=== PATIENT | male | born 1965 | race African-American/Black ===

== ENCOUNTER 2021-06-19 15:20 | Inpatient (IN) | payer OTHER ==
[2021-06-19] MEDS ORDERED: LOPERAMIDE HCL 2 MG CAPSULE PO PRN (23:35)
[2021-06-19] MEDS ORDERED: guaiFENesin 200 MG/10 ML 10 ML UNIT-DOSE CUPS PO PRN (23:35)
[2021-06-19] MEDS ORDERED: MAG HYDROX/AL HYDROX/SIMETH 30 ML UNIT-DOSE CUP PO PRN (23:35)
[2021-06-19] MEDS ORDERED: MAGNESIUM CITRATE 300 ML BOTTLE PO PRN (23:35)
[2021-06-19] MEDS ORDERED: MAGNESIUM HYDROX 2400MG/30ML ORAL SUSPENSION 30 ML CUP PO PRN (23:35)
[2021-06-19] MEDS ORDERED: P-EPHED 60MG/TRIPROLIDI 2.5MG TABLET PO PRN (23:35)
[2021-06-19 23:52] VITALS: BMI 26.7
[2021-06-20] MEDS ORDERED: TUBERCULIN PPD 5 TU/0.1ML VIAL ID ONE (02:19)
[2021-06-20] MEDS: MELATONIN 5 MG TABLETS PO SCH ×2 (02:29→21:33)
[2021-06-20] MEDS: hydrOXYzine PAMOATE 25 MG CAPSULE (FP) PO SCH ×5 (07:27→21:34)
[2021-06-20] MEDS: HYDROCHLOROTHIAZIDE 25 MG TABLET (FP) PO SCH (10:29)
[2021-06-20] MEDS: LISINOPRIL 10 MG TABLET PO SCH (10:29)
[2021-06-20] MEDS: ASPIRIN COATED 81 MG TABLET.EC PO SCH (10:29)
[2021-06-20] MEDS: PRENATAL VITAMINS W/ FOLIC ACID TABLET (FP) PO SCH (10:30)
[2021-06-20] MEDS: NICOTINE 7 MG/24 HOURS TOPICAL PATCH TD SCH (10:30)
[2021-06-20 13:13] LABS: EPI CELLS 5 /uL (0-25.1); HYALINE CASTS 0 /uL (0-3.1); PH,URINE 5.5 (5.0-8.0); URINE APPEARANCE CLEAR; URINE BACTERIA 44 /uL (0-1359); URINE BILIRUBIN NEGATIVE (NEGATIVE); URINE COLOR YELLOW; URINE GLUCOSE (UA) NEGATIVE (NEGATIVE); URINE KETONE NEGATIVE (NEGATIVE); URINE LEUK ESTERASE NEGATIVE (NEGATIVE); URINE NITRITE NEGATIVE (NEGATIVE); URINE PROTEIN NEGATIVE (NEGATIVE); URINE RBC 13 /uL (0-23.9); URINE WBC 8 /uL (0-25.8)
[2021-06-20] MEDS: IBUPROFEN 400 MG TABLET (FP) PO PRN (17:29)
[2021-06-20] MEDS: ATORVASTATIN CA 40 MG TABLET (FP) PO SCH (21:33)
[2021-06-20] MEDS: CEFPODOXIME PROXETIL 200 MG TABLET [NF] PO SCH (21:33)
[2021-06-20] MEDS: THIAMINE HCL 100 MG TABLET (FP) PO SCH (21:33)
[2021-06-20] MEDS: ACETAMINOPHEN 325 MG TABLET (FP) PO PRN (21:34)
[2021-06-21] MEDS: hydrOXYzine PAMOATE 25 MG CAPSULE (FP) PO SCH ×5 (06:14→21:17)
[2021-06-21] MEDS: CEFPODOXIME PROXETIL 200 MG TABLET [NF] PO SCH ×2 (07:03→17:19)
[2021-06-21] MEDS: ASPIRIN COATED 81 MG TABLET.EC PO SCH (11:37)
[2021-06-21] MEDS: ATORVASTATIN CA 40 MG TABLET (FP) PO SCH (11:38)
[2021-06-21] MEDS: HYDROCHLOROTHIAZIDE 25 MG TABLET (FP) PO SCH (11:38)
[2021-06-21] MEDS: LISINOPRIL 10 MG TABLET PO SCH (11:38)
[2021-06-21] MEDS: NICOTINE 7 MG/24 HOURS TOPICAL PATCH TD SCH (11:38)
[2021-06-21] MEDS: PRENATAL VITAMINS W/ FOLIC ACID TABLET (FP) PO SCH (11:38)
[2021-06-21] MEDS: METHOCARBAMOL 500 MG TABLET PO PRN (17:20)
[2021-06-21] MEDS: THIAMINE HCL 100 MG TABLET (FP) PO SCH (21:17)
[2021-06-21] MEDS: MELATONIN 5 MG TABLETS PO SCH (21:17)
[2021-06-22] MEDS: hydrOXYzine PAMOATE 25 MG CAPSULE (FP) PO SCH ×5 (06:23→21:35)
[2021-06-22] MEDS: ACETAMINOPHEN 325 MG TABLET (FP) PO PRN ×2 (06:24→10:42)
[2021-06-22] MEDS: CEFPODOXIME PROXETIL 200 MG TABLET [NF] PO SCH ×2 (07:15→18:02)
[2021-06-22] MEDS ORDERED: ATORVASTATIN CA 20 MG TABLET (FP) ONE (08:45)
[2021-06-22] MEDS: LISINOPRIL 10 MG TABLET PO SCH (10:41)
[2021-06-22] MEDS: ASPIRIN COATED 81 MG TABLET.EC PO SCH (10:41)
[2021-06-22] MEDS: BUPRENORPHINE/NALOXONE 4 MG/1 MG FILM PACKET SL SCH ×2 (10:41→21:35)
[2021-06-22] MEDS: HYDROCHLOROTHIAZIDE 25 MG TABLET (FP) PO SCH (10:41)
[2021-06-22] MEDS: ATORVASTATIN CA 40 MG TABLET (FP) PO SCH (10:41)
[2021-06-22] MEDS: PRENATAL VITAMINS W/ FOLIC ACID TABLET (FP) PO SCH (10:41)
[2021-06-22] MEDS: NICOTINE 7 MG/24 HOURS TOPICAL PATCH TD SCH (10:42)
[2021-06-22] MEDS: METHOCARBAMOL 500 MG TABLET PO PRN (10:44)
[2021-06-22 17:12] LABS: HEMATOCRIT 37.7 % (35.4-49); HEMOGLOBIN 13.1 GM/dL (11.7-16.9); MCH 32.5 pg (25.7-33.7); MCHC 34.8 g/dl (32.0-35.9); MEAN CELL VOLUME 93.1 fl (80-96); MEAN PLT VOLUME 7.9 fl (7.5-11.1); PLATELET COUNT 610 10^3/uL (134-434); RBC 4.04 M/mm3 (4.00-5.60); RDW 13.5 % (11.9-15.9); WHITE BLOOD COUNT 6.7 K/mm3 (4.0-10.0)
[2021-06-22] MEDS ORDERED: PT OWN MED DRAWER 7, Y5N ONE (17:19)
[2021-06-22 17:22] LABS: ALBUMIN 2.3 g/dl (3.4-5.0)
[2021-06-22 17:24] LABS: BILIRUBIN,TOTAL 0.5 mg/dL (0.2-1); TOT PROT 7.5 g/dl (6.4-8.2)
[2021-06-22] MEDS: THIAMINE HCL 100 MG TABLET (FP) PO SCH (21:34)
[2021-06-22] MEDS: MELATONIN 5 MG TABLETS PO SCH (21:35)
[2021-06-23] MEDS: ACETAMINOPHEN 325 MG TABLET (FP) PO PRN (06:31)
[2021-06-23] MEDS: hydrOXYzine PAMOATE 25 MG CAPSULE (FP) PO SCH ×5 (06:31→21:26)
[2021-06-23] MEDS: CEFPODOXIME PROXETIL 200 MG TABLET [NF] PO SCH (07:47)
[2021-06-23] MEDS: PRENATAL VITAMINS W/ FOLIC ACID TABLET (FP) PO SCH (10:09)
[2021-06-23] MEDS: NICOTINE 7 MG/24 HOURS TOPICAL PATCH TD SCH (10:10)
[2021-06-23] MEDS: LISINOPRIL 10 MG TABLET PO SCH (10:10)
[2021-06-23] MEDS: ATORVASTATIN CA 40 MG TABLET (FP) PO SCH (10:10)
[2021-06-23] MEDS: BUPRENORPHINE/NALOXONE 4 MG/1 MG FILM PACKET SL SCH ×2 (10:10→21:27)
[2021-06-23] MEDS: METHOCARBAMOL 500 MG TABLET PO PRN (10:10)
[2021-06-23] MEDS: ASPIRIN COATED 81 MG TABLET.EC PO SCH (10:10)
[2021-06-23] MEDS: HYDROCHLOROTHIAZIDE 25 MG TABLET (FP) PO SCH (10:10)
[2021-06-23] MEDS: MELATONIN 5 MG TABLETS PO SCH (21:26)
[2021-06-23] MEDS: THIAMINE HCL 100 MG TABLET (FP) PO SCH (21:26)
[2021-06-24] MEDS: hydrOXYzine PAMOATE 25 MG CAPSULE (FP) PO SCH ×5 (06:32→21:14)
[2021-06-24] MEDS: PRENATAL VITAMINS W/ FOLIC ACID TABLET (FP) PO SCH (09:26)
[2021-06-24] MEDS: LISINOPRIL 10 MG TABLET PO SCH (09:27)
[2021-06-24] MEDS: BUPRENORPHINE/NALOXONE 8 MG/2 MG FILM PACKET SL SCH (09:27)
[2021-06-24] MEDS: METHOCARBAMOL 500 MG TABLET PO PRN (09:27)
[2021-06-24] MEDS: ATORVASTATIN CA 40 MG TABLET (FP) PO SCH (09:27)
[2021-06-24] MEDS: IBUPROFEN 400 MG TABLET (FP) PO PRN (09:28)
[2021-06-24] MEDS: NICOTINE 7 MG/24 HOURS TOPICAL PATCH TD SCH (09:28)
[2021-06-24] MEDS: HYDROCHLOROTHIAZIDE 25 MG TABLET (FP) PO SCH (09:28)
[2021-06-24] MEDS: ASPIRIN COATED 81 MG TABLET.EC PO SCH (09:28)
[2021-06-24] MEDS ORDERED: BUPRENORPHINE/NALOXONE 8 MG/2 MG FILM PACKET SL SCH (10:00)
[2021-06-24] MEDS: NICOTINE 10 MG CARTRIDGE (INHALER) IH PRN (18:13)
[2021-06-24] MEDS: BUPRENORPHINE/NALOXONE 4 MG/1 MG FILM PACKET SL SCH (21:12)
[2021-06-24] MEDS: MELATONIN 5 MG TABLETS PO SCH (21:13)
[2021-06-24] MEDS: THIAMINE HCL 100 MG TABLET (FP) PO SCH (21:13)
[2021-06-25] MEDS: ACETAMINOPHEN 325 MG TABLET (FP) PO PRN ×2 (06:19→14:32)
[2021-06-25] MEDS: hydrOXYzine PAMOATE 25 MG CAPSULE (FP) PO SCH ×5 (06:19→21:33)
[2021-06-25] MEDS: LISINOPRIL 10 MG TABLET PO SCH (09:58)
[2021-06-25] MEDS: ASPIRIN COATED 81 MG TABLET.EC PO SCH (09:58)
[2021-06-25] MEDS: ATORVASTATIN CA 40 MG TABLET (FP) PO SCH (09:59)
[2021-06-25] MEDS: HYDROCHLOROTHIAZIDE 25 MG TABLET (FP) PO SCH (09:59)
[2021-06-25] MEDS: BUPRENORPHINE/NALOXONE 8 MG/2 MG FILM PACKET SL SCH (10:00)
[2021-06-25] MEDS: NICOTINE 7 MG/24 HOURS TOPICAL PATCH TD SCH (10:00)
[2021-06-25] MEDS: PRENATAL VITAMINS W/ FOLIC ACID TABLET (FP) PO SCH (10:00)
[2021-06-25] MEDS: MELATONIN 5 MG TABLETS PO SCH (21:32)
[2021-06-25] MEDS: THIAMINE HCL 100 MG TABLET (FP) PO SCH (21:32)
[2021-06-25] MEDS: IBUPROFEN 400 MG TABLET (FP) PO PRN (21:33)
[2021-06-25] MEDS: BUPRENORPHINE/NALOXONE 4 MG/1 MG FILM PACKET SL SCH (21:34)
[2021-06-25] MEDS: NICOTINE 10 MG CARTRIDGE (INHALER) IH PRN (21:38)
[2021-06-26] MEDS: IBUPROFEN 400 MG TABLET (FP) PO PRN ×2 (06:35→21:01)
[2021-06-26] MEDS: hydrOXYzine PAMOATE 25 MG CAPSULE (FP) PO SCH ×5 (07:16→21:03)
[2021-06-26] MEDS: ATORVASTATIN CA 40 MG TABLET (FP) PO SCH (09:47)
[2021-06-26] MEDS: LISINOPRIL 10 MG TABLET PO SCH (09:47)
[2021-06-26] MEDS: HYDROCHLOROTHIAZIDE 25 MG TABLET (FP) PO SCH (09:47)
[2021-06-26] MEDS: NICOTINE 7 MG/24 HOURS TOPICAL PATCH TD SCH (09:47)
[2021-06-26] MEDS: BUPRENORPHINE/NALOXONE 8 MG/2 MG FILM PACKET SL SCH (09:47)
[2021-06-26] MEDS: PRENATAL VITAMINS W/ FOLIC ACID TABLET (FP) PO SCH (09:48)
[2021-06-26] MEDS: ASPIRIN COATED 81 MG TABLET.EC PO SCH (09:48)
[2021-06-26] MEDS: METHOCARBAMOL 500 MG TABLET PO PRN (09:50)
[2021-06-26] MEDS: ACETAMINOPHEN 325 MG TABLET (FP) PO PRN (09:50)
[2021-06-26] MEDS: NICOTINE 10 MG CARTRIDGE (INHALER) IH PRN (13:38)
[2021-06-26] MEDS: THIAMINE HCL 100 MG TABLET (FP) PO SCH (21:00)
[2021-06-26] MEDS: MELATONIN 5 MG TABLETS PO SCH (21:00)
[2021-06-26] MEDS: BUPRENORPHINE/NALOXONE 4 MG/1 MG FILM PACKET SL SCH (21:01)
[2021-06-27] MEDS: hydrOXYzine PAMOATE 25 MG CAPSULE (FP) PO SCH ×5 (06:34→21:40)
[2021-06-27] MEDS: ACETAMINOPHEN 325 MG TABLET (FP) PO PRN (06:34)
[2021-06-27] MEDS: NICOTINE 10 MG CARTRIDGE (INHALER) IH PRN ×2 (06:35→21:41)
[2021-06-27] MEDS: PRENATAL VITAMINS W/ FOLIC ACID TABLET (FP) PO SCH (10:05)
[2021-06-27] MEDS: ASPIRIN COATED 81 MG TABLET.EC PO SCH (10:05)
[2021-06-27] MEDS: HYDROCHLOROTHIAZIDE 25 MG TABLET (FP) PO SCH (10:05)
[2021-06-27] MEDS: BUPRENORPHINE/NALOXONE 8 MG/2 MG FILM PACKET SL SCH (10:05)
[2021-06-27] MEDS: LISINOPRIL 10 MG TABLET PO SCH (10:05)
[2021-06-27] MEDS: ATORVASTATIN CA 40 MG TABLET (FP) PO SCH (10:05)
[2021-06-27] MEDS: NICOTINE 7 MG/24 HOURS TOPICAL PATCH TD SCH (10:06)
[2021-06-27] MEDS: METHOCARBAMOL 500 MG TABLET PO PRN (14:54)
[2021-06-27] MEDS: BUPRENORPHINE/NALOXONE 4 MG/1 MG FILM PACKET SL SCH (21:40)
[2021-06-27] MEDS: MELATONIN 5 MG TABLETS PO SCH (21:40)
[2021-06-27] MEDS: THIAMINE HCL 100 MG TABLET (FP) PO SCH (21:40)
[2021-06-28] MEDS: IBUPROFEN 400 MG TABLET (FP) PO PRN (06:44)
[2021-06-28] MEDS: hydrOXYzine PAMOATE 25 MG CAPSULE (FP) PO SCH ×5 (06:44→21:11)
[2021-06-28] MEDS: LISINOPRIL 10 MG TABLET PO SCH (10:17)
[2021-06-28] MEDS: ASPIRIN COATED 81 MG TABLET.EC PO SCH (10:17)
[2021-06-28] MEDS: ATORVASTATIN CA 40 MG TABLET (FP) PO SCH (10:17)
[2021-06-28] MEDS: HYDROCHLOROTHIAZIDE 25 MG TABLET (FP) PO SCH (10:17)
[2021-06-28] MEDS: PRENATAL VITAMINS W/ FOLIC ACID TABLET (FP) PO SCH (10:17)
[2021-06-28] MEDS: BUPRENORPHINE/NALOXONE 8 MG/2 MG FILM PACKET SL SCH (10:17)
[2021-06-28] MEDS: NICOTINE 7 MG/24 HOURS TOPICAL PATCH TD SCH (10:18)
[2021-06-28] MEDS: NICOTINE 10 MG CARTRIDGE (INHALER) IH PRN (10:18)
[2021-06-28] MEDS: ACETAMINOPHEN 325 MG TABLET (FP) PO PRN (15:53)
[2021-06-28] MEDS: THIAMINE HCL 100 MG TABLET (FP) PO SCH (21:11)
[2021-06-28] MEDS: MELATONIN 5 MG TABLETS PO SCH (21:11)
[2021-06-28] MEDS: BUPRENORPHINE/NALOXONE 4 MG/1 MG FILM PACKET SL SCH (21:12)
[2021-06-29] MEDS: IBUPROFEN 400 MG TABLET (FP) PO PRN ×2 (06:36→17:26)
[2021-06-29] MEDS: hydrOXYzine PAMOATE 25 MG CAPSULE (FP) PO SCH (07:07)
[2021-06-29] MEDS ORDERED: hydrOXYzine PAMOATE 50 MG CAPSULE (FP) PO PRN (08:44)
[2021-06-29] MEDS ORDERED: PT OWN MED DRAWER 7, Y5N ONE (08:51)
[2021-06-29] MEDS: BUPRENORPHINE/NALOXONE 8 MG/2 MG FILM PACKET SL SCH (10:23)
[2021-06-29] MEDS: ATORVASTATIN CA 40 MG TABLET (FP) PO SCH (10:23)
[2021-06-29] MEDS: LISINOPRIL 10 MG TABLET PO SCH (10:24)
[2021-06-29] MEDS: METHOCARBAMOL 500 MG TABLET PO PRN (10:24)
[2021-06-29] MEDS: NICOTINE 7 MG/24 HOURS TOPICAL PATCH TD SCH (10:24)
[2021-06-29] MEDS: HYDROCHLOROTHIAZIDE 25 MG TABLET (FP) PO SCH (10:24)
[2021-06-29] MEDS: PRENATAL VITAMINS W/ FOLIC ACID TABLET (FP) PO SCH (10:24)
[2021-06-29] MEDS: ASPIRIN COATED 81 MG TABLET.EC PO SCH (10:24)
[2021-06-29] MEDS: NICOTINE 10 MG CARTRIDGE (INHALER) IH PRN ×2 (10:25→21:27)
[2021-06-29] MEDS: DOXYCYCLINE HYCLATE 100 MG TABLET PO SCH (17:26)
[2021-06-29] MEDS: THIAMINE HCL 100 MG TABLET (FP) PO SCH (21:27)
[2021-06-29] MEDS: MELATONIN 5 MG TABLETS PO SCH (21:27)
[2021-06-29] MEDS: BUPRENORPHINE/NALOXONE 4 MG/1 MG FILM PACKET SL SCH (21:28)
[2021-06-30] MEDS: ACETAMINOPHEN 325 MG TABLET (FP) PO PRN (06:45)
[2021-06-30] MEDS: HYDROCHLOROTHIAZIDE 25 MG TABLET (FP) PO SCH (10:00)
[2021-06-30] MEDS: LISINOPRIL 10 MG TABLET PO SCH (10:00)
[2021-06-30] MEDS: ASPIRIN COATED 81 MG TABLET.EC PO SCH (10:00)
[2021-06-30] MEDS: DOXYCYCLINE HYCLATE 100 MG TABLET PO SCH ×2 (10:00→17:20)
[2021-06-30] MEDS: PRENATAL VITAMINS W/ FOLIC ACID TABLET (FP) PO SCH (10:00)
[2021-06-30] MEDS: ATORVASTATIN CA 40 MG TABLET (FP) PO SCH (10:00)
[2021-06-30] MEDS: NICOTINE 7 MG/24 HOURS TOPICAL PATCH TD SCH (10:01)
[2021-06-30] MEDS: BUPRENORPHINE/NALOXONE 8 MG/2 MG FILM PACKET SL SCH (10:01)
[2021-06-30] MEDS: NICOTINE 10 MG CARTRIDGE (INHALER) IH PRN ×3 (10:01→21:05)
[2021-06-30] MEDS: THIAMINE HCL 100 MG TABLET (FP) PO SCH (21:04)
[2021-06-30] MEDS: BUPRENORPHINE/NALOXONE 4 MG/1 MG FILM PACKET SL SCH (21:05)
[2021-07-01] MEDS ORDERED: PT OWN MED DRAWER 7, Y5N ONE (08:42)
[2021-07-01] MEDS: PRENATAL VITAMINS W/ FOLIC ACID TABLET (FP) PO SCH (10:33)
[2021-07-01] MEDS: DOXYCYCLINE HYCLATE 100 MG TABLET PO SCH ×2 (10:33→18:08)
[2021-07-01] MEDS: LISINOPRIL 10 MG TABLET PO SCH (10:34)
[2021-07-01] MEDS: ATORVASTATIN CA 40 MG TABLET (FP) PO SCH (10:34)
[2021-07-01] MEDS: BUPRENORPHINE/NALOXONE 8 MG/2 MG FILM PACKET SL SCH ×2 (10:34→23:30)
[2021-07-01] MEDS: ACETAMINOPHEN 325 MG TABLET (FP) PO PRN (10:34)
[2021-07-01] MEDS: METHOCARBAMOL 500 MG TABLET PO PRN (10:34)
[2021-07-01] MEDS: ASPIRIN COATED 81 MG TABLET.EC PO SCH (10:34)
[2021-07-01] MEDS: NICOTINE 7 MG/24 HOURS TOPICAL PATCH TD SCH (10:34)
[2021-07-01] MEDS: HYDROCHLOROTHIAZIDE 25 MG TABLET (FP) PO SCH (10:34)
[2021-07-01] MEDS: NICOTINE 10 MG CARTRIDGE (INHALER) IH PRN ×3 (10:37→18:05)
[2021-07-01] MEDS: ALBUTEROL SO4 HFA INHALER IH PRN (10:56)
[2021-07-01] MEDS: CEFPODOXIME PROXETIL 200 MG TABLET [NF] PO SCH ×2 (12:19→23:30)
[2021-07-01] MEDS: THIAMINE HCL 100 MG TABLET (FP) PO SCH (23:30)
[2021-07-02] MEDS: CEFPODOXIME PROXETIL 200 MG TABLET [NF] PO SCH ×2 (10:34→23:41)
[2021-07-02] MEDS: BUPRENORPHINE/NALOXONE 8 MG/2 MG FILM PACKET SL SCH ×2 (10:34→21:12)
[2021-07-02] MEDS: ATORVASTATIN CA 40 MG TABLET (FP) PO SCH (10:34)
[2021-07-02] MEDS: HYDROCHLOROTHIAZIDE 25 MG TABLET (FP) PO SCH (10:34)
[2021-07-02] MEDS: PRENATAL VITAMINS W/ FOLIC ACID TABLET (FP) PO SCH (10:34)
[2021-07-02] MEDS: DOXYCYCLINE HYCLATE 100 MG TABLET PO SCH ×2 (10:35→17:32)
[2021-07-02] MEDS: LISINOPRIL 10 MG TABLET PO SCH (10:36)
[2021-07-02] MEDS: NICOTINE 7 MG/24 HOURS TOPICAL PATCH TD SCH (10:36)
[2021-07-02] MEDS: ASPIRIN COATED 81 MG TABLET.EC PO SCH (10:36)
[2021-07-02] MEDS: NICOTINE 10 MG CARTRIDGE (INHALER) IH PRN ×3 (10:38→21:13)
[2021-07-02] MEDS: METHOCARBAMOL 500 MG TABLET PO PRN ×2 (15:31→21:12)
[2021-07-02] MEDS ORDERED: PT OWN MED DRAWER 7, Y5N ONE (16:52)
[2021-07-02] MEDS: THIAMINE HCL 100 MG TABLET (FP) PO SCH (21:12)
[2021-07-03] MEDS: ACETAMINOPHEN 325 MG TABLET (FP) PO PRN (06:53)
[2021-07-03] MEDS: NICOTINE 10 MG CARTRIDGE (INHALER) IH PRN ×4 (06:54→19:01)
[2021-07-03] MEDS: ATORVASTATIN CA 40 MG TABLET (FP) PO SCH (10:36)
[2021-07-03] MEDS: CEFPODOXIME PROXETIL 200 MG TABLET [NF] PO SCH ×2 (10:36→23:06)
[2021-07-03] MEDS: DOXYCYCLINE HYCLATE 100 MG TABLET PO SCH ×2 (10:36→19:00)
[2021-07-03] MEDS: NICOTINE 7 MG/24 HOURS TOPICAL PATCH TD SCH (10:36)
[2021-07-03] MEDS: ASPIRIN COATED 81 MG TABLET.EC PO SCH (10:36)
[2021-07-03] MEDS: PRENATAL VITAMINS W/ FOLIC ACID TABLET (FP) PO SCH (10:36)
[2021-07-03] MEDS: BUPRENORPHINE/NALOXONE 8 MG/2 MG FILM PACKET SL SCH ×2 (10:36→21:27)
[2021-07-03] MEDS: LISINOPRIL 10 MG TABLET PO SCH (10:36)
[2021-07-03] MEDS: METHOCARBAMOL 500 MG TABLET PO PRN (10:36)
[2021-07-03] MEDS: HYDROCHLOROTHIAZIDE 25 MG TABLET (FP) PO SCH (10:36)
[2021-07-03] MEDS: ALBUTEROL SO4 HFA INHALER IH PRN (10:38)
[2021-07-03] MEDS: IBUPROFEN 400 MG TABLET (FP) PO PRN (17:33)
[2021-07-03] MEDS: THIAMINE HCL 100 MG TABLET (FP) PO SCH (21:26)
[2021-07-04] MEDS: ACETAMINOPHEN 325 MG TABLET (FP) PO PRN (06:33)
[2021-07-04] MEDS: NICOTINE 10 MG CARTRIDGE (INHALER) IH PRN ×4 (06:35→21:11)
[2021-07-04] MEDS: ASPIRIN COATED 81 MG TABLET.EC PO SCH (10:02)
[2021-07-04] MEDS: BUPRENORPHINE/NALOXONE 8 MG/2 MG FILM PACKET SL SCH ×2 (10:02→21:10)
[2021-07-04] MEDS: ATORVASTATIN CA 40 MG TABLET (FP) PO SCH (10:02)
[2021-07-04] MEDS: NICOTINE 7 MG/24 HOURS TOPICAL PATCH TD SCH (10:02)
[2021-07-04] MEDS: PRENATAL VITAMINS W/ FOLIC ACID TABLET (FP) PO SCH (10:02)
[2021-07-04] MEDS: LISINOPRIL 10 MG TABLET PO SCH (10:03)
[2021-07-04] MEDS: HYDROCHLOROTHIAZIDE 25 MG TABLET (FP) PO SCH (10:03)
[2021-07-04] MEDS: DOXYCYCLINE HYCLATE 100 MG TABLET PO SCH ×2 (10:03→17:18)
[2021-07-04] MEDS: CEFPODOXIME PROXETIL 200 MG TABLET [NF] PO SCH ×2 (12:10→23:13)
[2021-07-04] MEDS: IBUPROFEN 400 MG TABLET (FP) PO PRN (16:36)
[2021-07-04] MEDS: THIAMINE HCL 100 MG TABLET (FP) PO SCH (21:10)
[2021-07-05] MEDS: ACETAMINOPHEN 325 MG TABLET (FP) PO PRN ×3 (06:21→23:31)
[2021-07-05] MEDS: NICOTINE 10 MG CARTRIDGE (INHALER) IH PRN ×4 (06:27→21:29)
[2021-07-05] MEDS: PRENATAL VITAMINS W/ FOLIC ACID TABLET (FP) PO SCH (10:24)
[2021-07-05] MEDS: ATORVASTATIN CA 40 MG TABLET (FP) PO SCH (10:24)
[2021-07-05] MEDS: LISINOPRIL 10 MG TABLET PO SCH (10:24)
[2021-07-05] MEDS: NICOTINE 7 MG/24 HOURS TOPICAL PATCH TD SCH (10:24)
[2021-07-05] MEDS: ASPIRIN COATED 81 MG TABLET.EC PO SCH (10:24)
[2021-07-05] MEDS: HYDROCHLOROTHIAZIDE 25 MG TABLET (FP) PO SCH (10:24)
[2021-07-05] MEDS: BUPRENORPHINE/NALOXONE 8 MG/2 MG FILM PACKET SL SCH ×2 (10:24→21:28)
[2021-07-05] MEDS: DOXYCYCLINE HYCLATE 100 MG TABLET PO SCH ×2 (10:24→17:53)
[2021-07-05] MEDS: CEFPODOXIME PROXETIL 200 MG TABLET [NF] PO SCH ×2 (10:25→23:30)
[2021-07-05] MEDS: THIAMINE HCL 100 MG TABLET (FP) PO SCH (21:27)
[2021-07-05] MEDS: IBUPROFEN 400 MG TABLET (FP) PO PRN (21:28)
[2021-07-05] MEDS ORDERED: PT OWN MED DRAWER 7, Y5N ONE (23:30)
[2021-07-06] MEDS: ACETAMINOPHEN 325 MG TABLET (FP) PO PRN (06:14)
[2021-07-06] MEDS: NICOTINE 10 MG CARTRIDGE (INHALER) IH PRN ×3 (06:15→21:11)
[2021-07-06] MEDS: ATORVASTATIN CA 40 MG TABLET (FP) PO SCH (10:21)
[2021-07-06] MEDS: ASPIRIN COATED 81 MG TABLET.EC PO SCH (10:21)
[2021-07-06] MEDS: METHOCARBAMOL 500 MG TABLET PO PRN ×2 (10:21→21:11)
[2021-07-06] MEDS: DOXYCYCLINE HYCLATE 100 MG TABLET PO SCH (10:21)
[2021-07-06] MEDS: PRENATAL VITAMINS W/ FOLIC ACID TABLET (FP) PO SCH (10:21)
[2021-07-06] MEDS: LISINOPRIL 10 MG TABLET PO SCH (10:21)
[2021-07-06] MEDS: HYDROCHLOROTHIAZIDE 25 MG TABLET (FP) PO SCH (10:21)
[2021-07-06] MEDS: CEFPODOXIME PROXETIL 200 MG TABLET [NF] PO SCH ×2 (10:22→22:49)
[2021-07-06] MEDS: NICOTINE 7 MG/24 HOURS TOPICAL PATCH TD SCH (10:22)
[2021-07-06] MEDS: BUPRENORPHINE/NALOXONE 8 MG/2 MG FILM PACKET SL SCH ×2 (10:22→21:11)
[2021-07-06] MEDS: ALBUTEROL SO4 HFA INHALER IH PRN (10:25)
[2021-07-06] MEDS ORDERED: PT OWN MED DRAWER 7, Y5N ONE (16:49)
[2021-07-06] MEDS: DOXYCYCLINE HYCLATE 100 MG CAPSULE PO SCH (18:46)
[2021-07-06] MEDS: THIAMINE HCL 100 MG TABLET (FP) PO SCH (21:10)
[2021-07-07] MEDS: NICOTINE 10 MG CARTRIDGE (INHALER) IH PRN ×4 (06:10→21:38)
[2021-07-07] MEDS: ACETAMINOPHEN 325 MG TABLET (FP) PO PRN (06:10)
[2021-07-07] MEDS ORDERED: PT OWN MED DRAWER 7, Y5N ONE ×2 (08:37→21:38)
[2021-07-07] MEDS: PRENATAL VITAMINS W/ FOLIC ACID TABLET (FP) PO SCH (10:22)
[2021-07-07] MEDS: CEFPODOXIME PROXETIL 200 MG TABLET [NF] PO SCH ×2 (10:22→22:57)
[2021-07-07] MEDS: ATORVASTATIN CA 40 MG TABLET (FP) PO SCH (10:23)
[2021-07-07] MEDS: LISINOPRIL 10 MG TABLET PO SCH (10:23)
[2021-07-07] MEDS: METHOCARBAMOL 500 MG TABLET PO PRN (10:23)
[2021-07-07] MEDS: ASPIRIN COATED 81 MG TABLET.EC PO SCH (10:23)
[2021-07-07] MEDS: NICOTINE 7 MG/24 HOURS TOPICAL PATCH TD SCH (10:23)
[2021-07-07] MEDS: BUPRENORPHINE/NALOXONE 8 MG/2 MG FILM PACKET SL SCH ×2 (10:23→21:38)
[2021-07-07] MEDS: DOXYCYCLINE HYCLATE 100 MG CAPSULE PO SCH ×2 (10:23→18:55)
[2021-07-07] MEDS: HYDROCHLOROTHIAZIDE 25 MG TABLET (FP) PO SCH (10:23)
[2021-07-07] MEDS: IBUPROFEN 400 MG TABLET (FP) PO PRN ×2 (10:25→16:54)
[2021-07-07] MEDS: ALBUTEROL SO4 HFA INHALER IH PRN (10:28)
[2021-07-07] MEDS: THIAMINE HCL 100 MG TABLET (FP) PO SCH (21:35)
[2021-07-08] MEDS: ACETAMINOPHEN 325 MG TABLET (FP) PO PRN (06:28)
[2021-07-08] MEDS: NICOTINE 10 MG CARTRIDGE (INHALER) IH PRN ×4 (06:29→21:08)
[2021-07-08] MEDS: PRENATAL VITAMINS W/ FOLIC ACID TABLET (FP) PO SCH (10:10)
[2021-07-08] MEDS: METHOCARBAMOL 500 MG TABLET PO PRN ×2 (10:10→21:07)
[2021-07-08] MEDS: HYDROCHLOROTHIAZIDE 25 MG TABLET (FP) PO SCH (10:10)
[2021-07-08] MEDS: DOXYCYCLINE HYCLATE 100 MG CAPSULE PO SCH ×2 (10:10→17:44)
[2021-07-08] MEDS: LISINOPRIL 10 MG TABLET PO SCH (10:11)
[2021-07-08] MEDS: ATORVASTATIN CA 40 MG TABLET (FP) PO SCH (10:11)
[2021-07-08] MEDS: ASPIRIN COATED 81 MG TABLET.EC PO SCH (10:11)
[2021-07-08] MEDS: NICOTINE 7 MG/24 HOURS TOPICAL PATCH TD SCH (11:10)
[2021-07-08] MEDS: BUPRENORPHINE/NALOXONE 8 MG/2 MG FILM PACKET SL SCH ×2 (11:14→21:07)
[2021-07-08] MEDS: CEFPODOXIME PROXETIL 200 MG TABLET [NF] PO SCH ×2 (11:15→23:17)
[2021-07-08] MEDS: MAGNESIUM HYDROX 2400MG/30ML ORAL SUSPENSION 30 ML CUP PO PRN (12:06)
[2021-07-08] MEDS: IBUPROFEN 400 MG TABLET (FP) PO PRN (15:41)
[2021-07-08] MEDS: THIAMINE HCL 100 MG TABLET (FP) PO SCH (21:06)
[2021-07-09] MEDS: NICOTINE 10 MG CARTRIDGE (INHALER) IH PRN ×4 (06:12→21:20)
[2021-07-09] MEDS: ACETAMINOPHEN 325 MG TABLET (FP) PO PRN (06:12)
[2021-07-09] MEDS: ATORVASTATIN CA 40 MG TABLET (FP) PO SCH (09:50)
[2021-07-09] MEDS: HYDROCHLOROTHIAZIDE 25 MG TABLET (FP) PO SCH (09:50)
[2021-07-09] MEDS: LISINOPRIL 10 MG TABLET PO SCH (09:50)
[2021-07-09] MEDS: PRENATAL VITAMINS W/ FOLIC ACID TABLET (FP) PO SCH (09:50)
[2021-07-09] MEDS: ASPIRIN COATED 81 MG TABLET.EC PO SCH (09:50)
[2021-07-09] MEDS: METHOCARBAMOL 500 MG TABLET PO PRN ×2 (09:50→18:41)
[2021-07-09] MEDS: NICOTINE 7 MG/24 HOURS TOPICAL PATCH TD SCH (09:51)
[2021-07-09] MEDS: ALBUTEROL SO4 HFA INHALER IH PRN ×2 (09:51→15:47)
[2021-07-09] MEDS: BUPRENORPHINE/NALOXONE 8 MG/2 MG FILM PACKET SL SCH ×2 (09:51→21:19)
[2021-07-09] MEDS: DOXYCYCLINE HYCLATE 100 MG CAPSULE PO SCH (09:51)
[2021-07-09] MEDS: CEFPODOXIME PROXETIL 200 MG TABLET [NF] PO SCH ×2 (10:44→22:51)
[2021-07-09] MEDS: IBUPROFEN 400 MG TABLET (FP) PO PRN (13:48)
[2021-07-09] MEDS: DOXYCYCLINE HYCLATE 100 MG TABLET PO SCH (18:41)
[2021-07-09] MEDS: THIAMINE HCL 100 MG TABLET (FP) PO SCH (21:19)
[2021-07-10] MEDS: NICOTINE 10 MG CARTRIDGE (INHALER) IH PRN ×4 (06:37→23:16)
[2021-07-10] MEDS: ACETAMINOPHEN 325 MG TABLET (FP) PO PRN ×2 (06:37→09:48)
[2021-07-10] MEDS: DOXYCYCLINE HYCLATE 100 MG TABLET PO SCH ×2 (06:37→17:16)
[2021-07-10] MEDS: ASPIRIN COATED 81 MG TABLET.EC PO SCH (09:46)
[2021-07-10] MEDS: PRENATAL VITAMINS W/ FOLIC ACID TABLET (FP) PO SCH (09:46)
[2021-07-10] MEDS: LISINOPRIL 10 MG TABLET PO SCH (09:46)
[2021-07-10] MEDS: ATORVASTATIN CA 40 MG TABLET (FP) PO SCH (09:46)
[2021-07-10] MEDS: METHOCARBAMOL 500 MG TABLET PO PRN ×2 (09:46→21:25)
[2021-07-10] MEDS: HYDROCHLOROTHIAZIDE 25 MG TABLET (FP) PO SCH (09:46)
[2021-07-10] MEDS: NICOTINE 7 MG/24 HOURS TOPICAL PATCH TD SCH (09:47)
[2021-07-10] MEDS: BUPRENORPHINE/NALOXONE 8 MG/2 MG FILM PACKET SL SCH ×2 (09:47→21:25)
[2021-07-10] MEDS: ALBUTEROL SO4 HFA INHALER IH PRN (09:49)
[2021-07-10] MEDS: CEFPODOXIME PROXETIL 200 MG TABLET [NF] PO SCH ×2 (11:24→23:16)
[2021-07-10] MEDS: THIAMINE HCL 100 MG TABLET (FP) PO SCH (21:24)
[2021-07-11] MEDS ORDERED: PT OWN MED DRAWER 7, Y5N ONE (03:09)
[2021-07-11] MEDS: DOXYCYCLINE HYCLATE 100 MG TABLET PO SCH ×2 (06:15→17:11)
[2021-07-11] MEDS: NICOTINE 10 MG CARTRIDGE (INHALER) IH PRN ×4 (06:16→21:15)
[2021-07-11] MEDS: ACETAMINOPHEN 325 MG TABLET (FP) PO PRN ×2 (06:17→17:11)
[2021-07-11] MEDS: PRENATAL VITAMINS W/ FOLIC ACID TABLET (FP) PO SCH (09:33)
[2021-07-11] MEDS: METHOCARBAMOL 500 MG TABLET PO PRN (09:34)
[2021-07-11] MEDS: ASPIRIN COATED 81 MG TABLET.EC PO SCH (09:34)
[2021-07-11] MEDS: ATORVASTATIN CA 40 MG TABLET (FP) PO SCH (09:34)
[2021-07-11] MEDS: HYDROCHLOROTHIAZIDE 25 MG TABLET (FP) PO SCH (09:34)
[2021-07-11] MEDS: BUPRENORPHINE/NALOXONE 8 MG/2 MG FILM PACKET SL SCH ×2 (09:34→21:15)
[2021-07-11] MEDS: NICOTINE 7 MG/24 HOURS TOPICAL PATCH TD SCH (09:34)
[2021-07-11] MEDS: LISINOPRIL 10 MG TABLET PO SCH (09:34)
[2021-07-11] MEDS: ALBUTEROL SO4 HFA INHALER IH PRN (09:37)
[2021-07-11] MEDS: THIAMINE HCL 100 MG TABLET (FP) PO SCH (21:14)
[2021-07-12] MEDS: NICOTINE 10 MG CARTRIDGE (INHALER) IH PRN ×4 (06:42→21:33)
[2021-07-12] MEDS: DOXYCYCLINE HYCLATE 100 MG TABLET PO SCH ×2 (06:42→17:13)
[2021-07-12] MEDS: IBUPROFEN 400 MG TABLET (FP) PO PRN (06:43)
[2021-07-12] MEDS: ATORVASTATIN CA 40 MG TABLET (FP) PO SCH (10:18)
[2021-07-12] MEDS: METHOCARBAMOL 500 MG TABLET PO PRN (10:18)
[2021-07-12] MEDS: PRENATAL VITAMINS W/ FOLIC ACID TABLET (FP) PO SCH (10:18)
[2021-07-12] MEDS: ASPIRIN COATED 81 MG TABLET.EC PO SCH (10:18)
[2021-07-12] MEDS: ALBUTEROL SO4 HFA INHALER IH PRN (10:19)
[2021-07-12] MEDS: LISINOPRIL 10 MG TABLET PO SCH (10:19)
[2021-07-12] MEDS: HYDROCHLOROTHIAZIDE 25 MG TABLET (FP) PO SCH (10:19)
[2021-07-12] MEDS: BUPRENORPHINE/NALOXONE 8 MG/2 MG FILM PACKET SL SCH ×2 (10:19→21:32)
[2021-07-12] MEDS: NICOTINE 7 MG/24 HOURS TOPICAL PATCH TD SCH (10:19)
[2021-07-12] MEDS: THIAMINE HCL 100 MG TABLET (FP) PO SCH (21:31)
[2021-07-12] MEDS: ACETAMINOPHEN 325 MG TABLET (FP) PO PRN (21:31)
[2021-07-13] MEDS: ACETAMINOPHEN 325 MG TABLET (FP) PO PRN ×3 (06:40→21:11)
[2021-07-13] MEDS: NICOTINE 10 MG CARTRIDGE (INHALER) IH PRN ×3 (06:40→21:12)
[2021-07-13] MEDS: DOXYCYCLINE HYCLATE 100 MG TABLET PO SCH ×2 (06:40→18:14)
[2021-07-13] MEDS: PRENATAL VITAMINS W/ FOLIC ACID TABLET (FP) PO SCH (09:58)
[2021-07-13] MEDS: HYDROCHLOROTHIAZIDE 25 MG TABLET (FP) PO SCH (09:58)
[2021-07-13] MEDS: ASPIRIN COATED 81 MG TABLET.EC PO SCH (09:58)
[2021-07-13] MEDS: NICOTINE 7 MG/24 HOURS TOPICAL PATCH TD SCH (09:59)
[2021-07-13] MEDS: METHOCARBAMOL 500 MG TABLET PO PRN (09:59)
[2021-07-13] MEDS: BUPRENORPHINE/NALOXONE 8 MG/2 MG FILM PACKET SL SCH ×2 (09:59→21:11)
[2021-07-13] MEDS: ATORVASTATIN CA 40 MG TABLET (FP) PO SCH (09:59)
[2021-07-13] MEDS: LISINOPRIL 10 MG TABLET PO SCH (10:01)
[2021-07-13] MEDS: ALBUTEROL SO4 HFA INHALER IH PRN (10:01)
[2021-07-13] MEDS: THIAMINE HCL 100 MG TABLET (FP) PO SCH (21:10)
[2021-07-14] MEDS: ACETAMINOPHEN 325 MG TABLET (FP) PO PRN (06:30)
[2021-07-14] MEDS: DOXYCYCLINE HYCLATE 100 MG TABLET PO SCH ×2 (06:30→17:37)
[2021-07-14] MEDS: NICOTINE 10 MG CARTRIDGE (INHALER) IH PRN ×4 (06:31→21:35)
[2021-07-14] MEDS: BUPRENORPHINE/NALOXONE 8 MG/2 MG FILM PACKET SL SCH ×2 (10:20→21:34)
[2021-07-14] MEDS: PRENATAL VITAMINS W/ FOLIC ACID TABLET (FP) PO SCH (10:20)
[2021-07-14] MEDS: LISINOPRIL 10 MG TABLET PO SCH (10:20)
[2021-07-14] MEDS: ATORVASTATIN CA 40 MG TABLET (FP) PO SCH (10:20)
[2021-07-14] MEDS: ASPIRIN COATED 81 MG TABLET.EC PO SCH (10:20)
[2021-07-14] MEDS: HYDROCHLOROTHIAZIDE 25 MG TABLET (FP) PO SCH (10:20)
[2021-07-14] MEDS: NICOTINE 7 MG/24 HOURS TOPICAL PATCH TD SCH (10:20)
[2021-07-14] MEDS: ALBUTEROL SO4 HFA INHALER IH PRN (10:22)
[2021-07-14] MEDS: MAGNESIUM HYDROX 2400MG/30ML ORAL SUSPENSION 30 ML CUP PO PRN (14:44)
[2021-07-14] MEDS: METHOCARBAMOL 500 MG TABLET PO PRN (19:43)
[2021-07-14] MEDS: THIAMINE HCL 100 MG TABLET (FP) PO SCH (21:34)
[2021-07-14] MEDS: IBUPROFEN 400 MG TABLET (FP) PO PRN (21:35)
[2021-07-15] MEDS: NICOTINE 10 MG CARTRIDGE (INHALER) IH PRN ×5 (06:20→22:52)
[2021-07-15] MEDS: DOXYCYCLINE HYCLATE 100 MG TABLET PO SCH ×2 (06:20→17:14)
[2021-07-15] MEDS: ACETAMINOPHEN 325 MG TABLET (FP) PO PRN (06:20)
[2021-07-15] MEDS: HYDROCHLOROTHIAZIDE 25 MG TABLET (FP) PO SCH (09:56)
[2021-07-15] MEDS: ATORVASTATIN CA 40 MG TABLET (FP) PO SCH (09:56)
[2021-07-15] MEDS: ASPIRIN COATED 81 MG TABLET.EC PO SCH (09:56)
[2021-07-15] MEDS: LISINOPRIL 10 MG TABLET PO SCH (09:56)
[2021-07-15] MEDS: BUPRENORPHINE/NALOXONE 8 MG/2 MG FILM PACKET SL SCH ×2 (09:57→21:07)
[2021-07-15] MEDS: NICOTINE 7 MG/24 HOURS TOPICAL PATCH TD SCH (09:57)
[2021-07-15] MEDS: PRENATAL VITAMINS W/ FOLIC ACID TABLET (FP) PO SCH (09:57)
[2021-07-15] MEDS: IBUPROFEN 400 MG TABLET (FP) PO PRN (13:10)
[2021-07-15] MEDS: THIAMINE HCL 100 MG TABLET (FP) PO SCH (21:07)
[2021-07-15] MEDS: METHOCARBAMOL 500 MG TABLET PO PRN (21:07)
[2021-07-16] MEDS: ACETAMINOPHEN 325 MG TABLET (FP) PO PRN ×3 (06:04→21:22)
[2021-07-16] MEDS: DOXYCYCLINE HYCLATE 100 MG TABLET PO SCH (06:04)
[2021-07-16] MEDS: NICOTINE 10 MG CARTRIDGE (INHALER) IH PRN ×4 (06:05→21:24)
[2021-07-16] MEDS: ALBUTEROL SO4 HFA INHALER IH PRN (10:37)
[2021-07-16] MEDS: NICOTINE 7 MG/24 HOURS TOPICAL PATCH TD SCH (10:37)
[2021-07-16] MEDS: PRENATAL VITAMINS W/ FOLIC ACID TABLET (FP) PO SCH (10:37)
[2021-07-16] MEDS: HYDROCHLOROTHIAZIDE 25 MG TABLET (FP) PO SCH (10:38)
[2021-07-16] MEDS: ASPIRIN COATED 81 MG TABLET.EC PO SCH (10:38)
[2021-07-16] MEDS: ATORVASTATIN CA 40 MG TABLET (FP) PO SCH (10:38)
[2021-07-16] MEDS: LISINOPRIL 10 MG TABLET PO SCH (10:38)
[2021-07-16] MEDS: BUPRENORPHINE/NALOXONE 8 MG/2 MG FILM PACKET SL SCH ×2 (10:38→21:21)
[2021-07-16] MEDS: IBUPROFEN 400 MG TABLET (FP) PO PRN (10:40)
[2021-07-16] MEDS: THIAMINE HCL 100 MG TABLET (FP) PO SCH (21:21)
[2021-07-16] MEDS: METHOCARBAMOL 500 MG TABLET PO PRN (21:22)
[2021-07-17] MEDS: NICOTINE 10 MG CARTRIDGE (INHALER) IH PRN ×3 (06:31→13:21)
[2021-07-17] MEDS: ACETAMINOPHEN 325 MG TABLET (FP) PO PRN (06:32)
[2021-07-17 06:35] VITALS: TEMP 98.2
[2021-07-17] MEDS ORDERED: PT OWN MED DRAWER 7, Y5N ONE (08:55)
[2021-07-17 09:11] VITALS: BP 114/71; PULSE 101
[2021-07-17] MEDS: BUPRENORPHINE/NALOXONE 8 MG/2 MG FILM PACKET SL SCH (09:15)
[2021-07-17] MEDS: ASPIRIN COATED 81 MG TABLET.EC PO SCH (09:16)
[2021-07-17] MEDS: PRENATAL VITAMINS W/ FOLIC ACID TABLET (FP) PO SCH (09:16)
[2021-07-17] MEDS: ATORVASTATIN CA 40 MG TABLET (FP) PO SCH (09:16)
[2021-07-17] MEDS: LISINOPRIL 10 MG TABLET PO SCH (09:16)
[2021-07-17] MEDS: HYDROCHLOROTHIAZIDE 25 MG TABLET (FP) PO SCH (09:16)
[2021-07-17] MEDS: NICOTINE 7 MG/24 HOURS TOPICAL PATCH TD SCH (09:17)
[2021-07-17] MEDS: ALBUTEROL SO4 HFA INHALER IH PRN (09:19)
== END 2021-07-17 13:25 | disposition home or self-care (01) | DRG 772 ==
LOC: YASAS 15:20 → Y3W 23:12
PROVIDERS: ADMIT Allergy & Immunology; ATTEND Allergy & Immunology
PROC: HZ42ZZZ Group Counseling for Substance Abuse Treatment, Cognitive-Behavioral (ICD-10-PCS; principal; 2021-06-19)
DX: F11.20 Opioid dependence, uncomplicated (principal); F10.20 Alcohol dependence, uncomplicated; F14.20 Cocaine dependence, uncomplicated; F17.210 Nicotine dependence, cigarettes, uncomplicated; F19.24 Other psychoactive substance dependence with psychoactive substance-induced mood disorder; J18.9 Pneumonia, unspecified organism; I10 Essential (primary) hypertension; E78.5 Hyperlipidemia, unspecified; R76.11 Nonspecific reaction to tuberculin skin test without active tuberculosis; A53.9 Syphilis, unspecified; M94.0 Chondrocostal junction syndrome [Tietze]; R06.02 Shortness of breath; R91.8 Other nonspecific abnormal finding of lung field; Z51.81 Encounter for therapeutic drug level monitoring; Z56.0 Unemployment, unspecified; Z59.0 Homelessness
CPT/HCPCS: 36415; 71045-TC-FY; 71046-TC-FY; 80053; 81003; 85027; 86593; 86780; 93005; 93010; C9803; U0003; U0005

== ENCOUNTER 2021-07-01 19:20 | Emergency (ER) | payer OTHER ==
[2021-07-01 19:36] VITALS: BMI 22.8
[2021-07-02 09:27] VITALS: BP 98/63; PULSE 85; TEMP 98.2
== END 2021-07-02 09:49 | disposition short-term general hospital (02) ==
LOC: JER 19:20
DX: J18.9 Pneumonia, unspecified organism (principal)
CPT/HCPCS: 71250-TC; 99284-25

== ENCOUNTER 2022-08-03 12:57 | Inpatient (IN) | payer OTHER ==
[2022-08-03 15:57] VITALS: BMI 33.8
[2022-08-03] MEDS ORDERED: LOPERAMIDE HCL 2 MG CAPSULE PO PRN (16:50)
[2022-08-03] MEDS ORDERED: BENZOCAINE/MENTHOL (CHLORASEPTIC ) LOZENGE MM PRN (16:50)
[2022-08-03] MEDS ORDERED: MAG HYDROX/AL HYDROX/SIMETH 30 ML UNIT-DOSE CUP PO PRN (16:50)
[2022-08-03] MEDS ORDERED: ACETAMINOPHEN 325 MG TABLET (FP) PO PRN ×2 (16:50)
[2022-08-03] MEDS ORDERED: MAGNESIUM HYDROX 2400MG/30ML ORAL SUSPENSION 30 ML CUP PO PRN (16:50)
[2022-08-03] MEDS ORDERED: BISMUTH SUBSALICYLATE 524 MG/30 ML PO PRN (16:50)
[2022-08-03] MEDS ORDERED: ONDANSETRON *ODT* 4 MG TABLET SL PRN (16:50)
[2022-08-03] MEDS ORDERED: MAGNESIUM CITRATE 300 ML BOTTLE PO PRN (16:50)
[2022-08-03] MEDS ORDERED: NALOXONE HCL (KLOXXADO) 8 MG SPRAY NS PRN (16:50)
[2022-08-03] MEDS ORDERED: NICOTINE POLACRILEX 2 MG GUM BUC PRN (16:50)
[2022-08-03] MEDS ORDERED: DICYCLOMINE HCL 10 MG CAPSULE PO PRN (16:50)
[2022-08-03] MEDS: NICOTINE 10 MG CARTRIDGE (INHALER) IH PRN (18:17)
[2022-08-03] MEDS: hydrOXYzine PAMOATE 25 MG CAPSULE (FP) PO SCH ×2 (18:18→22:10)
[2022-08-03] MEDS: PRENATAL VITAMINS W/ FOLIC ACID TABLET (FP) PO SCH (18:18)
[2022-08-03] MEDS: NICOTINE 14 MG/24 HOURS TOPICAL PATCH TD SCH (18:19)
[2022-08-03] MEDS ORDERED: cloNIDine HCL 0.1 MG TABLET PO ONE (18:36)
[2022-08-03] MEDS: THIAMINE HCL 100 MG TABLET (FP) PO SCH (22:09)
[2022-08-03] MEDS: MELATONIN 5 MG TABLETS PO SCH (22:09)
[2022-08-04] MEDS: hydrOXYzine PAMOATE 25 MG CAPSULE (FP) PO SCH (06:33)
[2022-08-04] MEDS ORDERED: ALBUTEROL SO4 HFA INHALER IH PRN (08:52)
[2022-08-04] MEDS: IBUPROFEN 600 MG TABLET (FP) PO PRN ×2 (08:53→17:58)
[2022-08-04] MEDS ORDERED: LORazepam 1 MG TABLET PO PRN (09:01)
[2022-08-04] MEDS ORDERED: methaDONE HCL 10 MG TABLET PO SCH (09:15)
[2022-08-04] MEDS: LORazepam 2 MG TABLET PO SCH ×3 (10:32→22:41)
[2022-08-04] MEDS: METHOCARBAMOL 500 MG TABLET PO PRN (10:32)
[2022-08-04] MEDS: methaDONE 80 MG, methaDONE 10 MG PO SCH (10:32)
[2022-08-04] MEDS: NICOTINE 14 MG/24 HOURS TOPICAL PATCH TD SCH (10:33)
[2022-08-04] MEDS: HYDROCHLOROTHIAZIDE 25 MG TABLET (FP) PO SCH (10:33)
[2022-08-04] MEDS: ASPIRIN COATED 81 MG TABLET.EC PO SCH (10:33)
[2022-08-04] MEDS: PRENATAL VITAMINS W/ FOLIC ACID TABLET (FP) PO SCH (10:33)
[2022-08-04] MEDS: LISINOPRIL 10 MG TABLET PO SCH (10:33)
[2022-08-04] MEDS: NICOTINE 10 MG CARTRIDGE (INHALER) IH PRN (10:36)
[2022-08-04 15:22] LABS: HEMATOCRIT 39.4 % (35.4-49); HEMOGLOBIN 12.9 GM/dL (11.7-16.9); MCHC 32.8 g/dl (32.0-35.9); MEAN CELL VOLUME 91.4 fl (80-96); MEAN PLT VOLUME 9.1 fl (7.5-11.1); PLATELET COUNT 201 10^3/uL (134-434); RBC 4.31 M/mm3 (4.00-5.60); RDW 14.9 % (11.9-15.9)
[2022-08-04 15:27] LABS: CALCIUM 8.9 mg/dL (8.5-10.1)
[2022-08-04 15:28] LABS: ALBUMIN 3.2 g/dl (3.4-5.0); BLOOD UREA NITROGEN 17.6 mg/dL (7-18)
[2022-08-04 15:31] LABS: CREATININE 0.9 mg/dL (0.55-1.3)
[2022-08-04 15:33] LABS: TOT PROT 6.9 g/dl (6.4-8.2)
[2022-08-04] MEDS: THIAMINE HCL 100 MG TABLET (FP) PO SCH (22:41)
[2022-08-04] MEDS: MELATONIN 5 MG TABLETS PO SCH (22:41)
[2022-08-04] MEDS: ATORVASTATIN CA 40 MG TABLET (FP) PO SCH (22:41)
[2022-08-05] MEDS: methaDONE 80 MG, methaDONE 10 MG PO SCH (05:42)
[2022-08-05] MEDS: LORazepam 2 MG TABLET PO SCH ×3 (05:42→18:50)
[2022-08-05] MEDS: METHOCARBAMOL 500 MG TABLET PO PRN ×2 (05:44→18:41)
[2022-08-05] MEDS: IBUPROFEN 600 MG TABLET (FP) PO PRN (05:44)
[2022-08-05] MEDS: LISINOPRIL 10 MG TABLET PO SCH ×2 (08:36→10:39)
[2022-08-05] MEDS: HYDROCHLOROTHIAZIDE 25 MG TABLET (FP) PO SCH ×2 (08:36→10:38)
[2022-08-05] MEDS: ASPIRIN COATED 81 MG TABLET.EC PO SCH (10:39)
[2022-08-05] MEDS: PRENATAL VITAMINS W/ FOLIC ACID TABLET (FP) PO SCH (10:39)
[2022-08-05] MEDS: NICOTINE 14 MG/24 HOURS TOPICAL PATCH TD SCH (10:39)
[2022-08-05] MEDS: NICOTINE 10 MG CARTRIDGE (INHALER) IH PRN (11:10)
[2022-08-05] MEDS: IBUPROFEN 400 MG TABLET (FP) PO PRN (13:27)
[2022-08-05] MEDS ORDERED: cloNIDine HCL 0.1 MG TABLET PO ONE (18:03)
[2022-08-05] MEDS ORDERED: chlordiazePOXIDE HCL 25 MG CAPSULE PO ONE (18:05)
[2022-08-05] MEDS ORDERED: chlordiazePOXIDE HCL 25 MG CAPSULE PO PRN (18:05)
[2022-08-05] MEDS: INSULIN SLIDING SCALE (NOVOLOG) 1 VIAL SQ SCH (18:49)
[2022-08-05] MEDS: chlordiazePOXIDE HCL 25 MG CAPSULE PO SCH (22:22)
[2022-08-05] MEDS: ATORVASTATIN CA 40 MG TABLET (FP) PO SCH (22:23)
[2022-08-05] MEDS: THIAMINE HCL 100 MG TABLET (FP) PO SCH (22:23)
[2022-08-05] MEDS: MELATONIN 5 MG TABLETS PO SCH (22:24)
[2022-08-06] MEDS ORDERED: LORazepam 1 MG TABLET PO SCH (05:00)
[2022-08-06] MEDS: chlordiazePOXIDE HCL 25 MG CAPSULE PO SCH ×4 (05:52→22:35)
[2022-08-06] MEDS: methaDONE 80 MG, methaDONE 10 MG PO SCH (05:52)
[2022-08-06] MEDS: P-EPHED 60MG/TRIPROLIDI 2.5MG TABLET PO PRN ×2 (05:55→22:37)
[2022-08-06] MEDS: NICOTINE 10 MG CARTRIDGE (INHALER) IH PRN ×2 (05:56→22:37)
[2022-08-06] MEDS: INSULIN SLIDING SCALE (NOVOLOG) 1 VIAL SQ SCH ×2 (06:54→17:21)
[2022-08-06] MEDS ORDERED: INSULIN SLIDING SCALE (NOVOLOG) 1 VIAL SQ ONE (07:09)
[2022-08-06] MEDS: ASPIRIN COATED 81 MG TABLET.EC PO SCH (10:08)
[2022-08-06] MEDS: PRENATAL VITAMINS W/ FOLIC ACID TABLET (FP) PO SCH (10:08)
[2022-08-06] MEDS: HYDROCHLOROTHIAZIDE 25 MG TABLET (FP) PO SCH (10:08)
[2022-08-06] MEDS: LISINOPRIL 10 MG TABLET PO SCH (10:09)
[2022-08-06] MEDS: NICOTINE 14 MG/24 HOURS TOPICAL PATCH TD SCH (10:11)
[2022-08-06] MEDS: IBUPROFEN 400 MG TABLET (FP) PO PRN (10:12)
[2022-08-06] MEDS: METHOCARBAMOL 500 MG TABLET PO PRN (13:47)
[2022-08-06] MEDS: IBUPROFEN 600 MG TABLET (FP) PO PRN (18:14)
[2022-08-06] MEDS: THIAMINE HCL 100 MG TABLET (FP) PO SCH (22:35)
[2022-08-06] MEDS: ATORVASTATIN CA 40 MG TABLET (FP) PO SCH (22:35)
[2022-08-06] MEDS: MELATONIN 5 MG TABLETS PO SCH (22:36)
[2022-08-07] MEDS ORDERED: LORazepam 0.5 MG TABLET PO PRN
[2022-08-07] MEDS ORDERED: LORazepam 0.5 MG TABLET PO SCH (05:00)
[2022-08-07] MEDS: methaDONE 80 MG, methaDONE 10 MG PO SCH (05:58)
[2022-08-07] MEDS: chlordiazePOXIDE HCL 25 MG CAPSULE PO SCH ×4 (05:58→22:12)
[2022-08-07] MEDS: INSULIN SLIDING SCALE (NOVOLOG) 1 VIAL SQ SCH ×3 (07:06→18:06)
[2022-08-07] MEDS: HYDROCHLOROTHIAZIDE 25 MG TABLET (FP) PO SCH (10:56)
[2022-08-07] MEDS: METHOCARBAMOL 500 MG TABLET PO PRN (10:56)
[2022-08-07] MEDS: LISINOPRIL 10 MG TABLET PO SCH (10:56)
[2022-08-07] MEDS: ASPIRIN COATED 81 MG TABLET.EC PO SCH (10:56)
[2022-08-07] MEDS: PRENATAL VITAMINS W/ FOLIC ACID TABLET (FP) PO SCH (10:57)
[2022-08-07] MEDS: NICOTINE 14 MG/24 HOURS TOPICAL PATCH TD SCH (10:58)
[2022-08-07] MEDS: ATORVASTATIN CA 40 MG TABLET (FP) PO SCH (21:55)
[2022-08-07] MEDS: MELATONIN 5 MG TABLETS PO SCH (21:55)
[2022-08-07] MEDS: THIAMINE HCL 100 MG TABLET (FP) PO SCH (21:56)
[2022-08-08] MEDS ORDERED: chlordiazePOXIDE HCL 10 MG CAPSULE PO PRN
[2022-08-08] MEDS ORDERED: LORazepam 0.5 MG TABLET PO ONE (05:00)
[2022-08-08] MEDS: methaDONE 80 MG, methaDONE 10 MG PO SCH (07:06)
[2022-08-08] MEDS: chlordiazePOXIDE HCL 10 MG CAPSULE PO SCH ×4 (07:07→22:04)
[2022-08-08] MEDS: INSULIN SLIDING SCALE (NOVOLOG) 1 VIAL SQ SCH ×2 (07:49→18:04)
[2022-08-08] MEDS: HYDROCHLOROTHIAZIDE 25 MG TABLET (FP) PO SCH (10:29)
[2022-08-08] MEDS: IBUPROFEN 600 MG TABLET (FP) PO PRN (10:29)
[2022-08-08] MEDS: ASPIRIN COATED 81 MG TABLET.EC PO SCH (10:29)
[2022-08-08] MEDS: LISINOPRIL 10 MG TABLET PO SCH (10:29)
[2022-08-08] MEDS: PRENATAL VITAMINS W/ FOLIC ACID TABLET (FP) PO SCH (10:29)
[2022-08-08] MEDS: NICOTINE 14 MG/24 HOURS TOPICAL PATCH TD SCH (10:32)
[2022-08-08] MEDS: SODIUM CHLORIDE NASAL SPRAY 44 ML BOTTLE NS SCH ×2 (15:14→22:05)
[2022-08-08] MEDS: ATORVASTATIN CA 40 MG TABLET (FP) PO SCH (22:01)
[2022-08-08] MEDS: THIAMINE HCL 100 MG TABLET (FP) PO SCH (22:05)
[2022-08-08] MEDS: MELATONIN 5 MG TABLETS PO SCH (22:05)
[2022-08-09] MEDS ORDERED: chlordiazePOXIDE 5 MG CAPSULE ONE (04:13)
[2022-08-09] MEDS: methaDONE 80 MG, methaDONE 10 MG PO SCH (06:14)
[2022-08-09] MEDS: chlordiazePOXIDE HCL 10 MG CAPSULE PO SCH ×2 (06:15→18:45)
[2022-08-09] MEDS: INSULIN SLIDING SCALE (NOVOLOG) 1 VIAL SQ SCH ×2 (06:32→18:46)
[2022-08-09] MEDS: LISINOPRIL 10 MG TABLET PO SCH (10:39)
[2022-08-09] MEDS: SODIUM CHLORIDE NASAL SPRAY 44 ML BOTTLE NS SCH ×2 (10:39→23:43)
[2022-08-09] MEDS: NICOTINE 14 MG/24 HOURS TOPICAL PATCH TD SCH (10:39)
[2022-08-09] MEDS: ASPIRIN COATED 81 MG TABLET.EC PO SCH (10:39)
[2022-08-09] MEDS: PRENATAL VITAMINS W/ FOLIC ACID TABLET (FP) PO SCH (10:39)
[2022-08-09] MEDS: HYDROCHLOROTHIAZIDE 25 MG TABLET (FP) PO SCH (10:39)
[2022-08-09] MEDS: THIAMINE HCL 100 MG TABLET (FP) PO SCH (23:36)
[2022-08-09] MEDS: MELATONIN 5 MG TABLETS PO SCH (23:36)
[2022-08-09] MEDS: ATORVASTATIN CA 40 MG TABLET (FP) PO SCH (23:36)
[2022-08-10] MEDS ORDERED: chlordiazePOXIDE HCL 10 MG CAPSULE PO ONE (05:00)
[2022-08-10] MEDS: methaDONE 80 MG, methaDONE 10 MG PO SCH (06:01)
[2022-08-10] MEDS: INSULIN SLIDING SCALE (NOVOLOG) 1 VIAL SQ SCH ×2 (06:35→17:02)
[2022-08-10] MEDS: ASPIRIN COATED 81 MG TABLET.EC PO SCH (11:14)
[2022-08-10] MEDS: PRENATAL VITAMINS W/ FOLIC ACID TABLET (FP) PO SCH (11:14)
[2022-08-10] MEDS: LISINOPRIL 10 MG TABLET PO SCH (11:15)
[2022-08-10] MEDS: HYDROCHLOROTHIAZIDE 25 MG TABLET (FP) PO SCH (11:15)
[2022-08-10] MEDS: SODIUM CHLORIDE NASAL SPRAY 44 ML BOTTLE NS SCH ×2 (11:15→22:37)
[2022-08-10] MEDS: NICOTINE 14 MG/24 HOURS TOPICAL PATCH TD SCH (11:15)
[2022-08-10] MEDS: NICOTINE 10 MG CARTRIDGE (INHALER) IH PRN (18:56)
[2022-08-10] MEDS: MELATONIN 5 MG TABLETS PO SCH (22:36)
[2022-08-10] MEDS: ATORVASTATIN CA 40 MG TABLET (FP) PO SCH (22:36)
[2022-08-10] MEDS: THIAMINE HCL 100 MG TABLET (FP) PO SCH (22:36)
[2022-08-11] MEDS: methaDONE 80 MG, methaDONE 10 MG PO SCH (06:05)
[2022-08-11] MEDS: INSULIN SLIDING SCALE (NOVOLOG) 1 VIAL SQ SCH ×2 (07:38→17:11)
[2022-08-11] MEDS: ASPIRIN COATED 81 MG TABLET.EC PO SCH (10:49)
[2022-08-11] MEDS: HYDROCHLOROTHIAZIDE 25 MG TABLET (FP) PO SCH (10:49)
[2022-08-11] MEDS: LISINOPRIL 10 MG TABLET PO SCH (10:49)
[2022-08-11] MEDS: PRENATAL VITAMINS W/ FOLIC ACID TABLET (FP) PO SCH (10:49)
[2022-08-11] MEDS: SODIUM CHLORIDE NASAL SPRAY 44 ML BOTTLE NS SCH ×2 (10:49→23:15)
[2022-08-11] MEDS: NICOTINE 10 MG CARTRIDGE (INHALER) IH PRN (10:56)
[2022-08-11] MEDS: IBUPROFEN 600 MG TABLET (FP) PO PRN ×2 (10:56→22:40)
[2022-08-11] MEDS: NICOTINE 14 MG/24 HOURS TOPICAL PATCH TD SCH (10:57)
[2022-08-11 21:11] VITALS: RESP 18
[2022-08-11] MEDS: THIAMINE HCL 100 MG TABLET (FP) PO SCH (22:36)
[2022-08-11] MEDS: MELATONIN 5 MG TABLETS PO SCH (22:36)
[2022-08-11] MEDS: ATORVASTATIN CA 40 MG TABLET (FP) PO SCH (22:36)
[2022-08-12] MEDS: methaDONE 80 MG, methaDONE 10 MG PO SCH (05:57)
[2022-08-12] MEDS: INSULIN SLIDING SCALE (NOVOLOG) 1 VIAL SQ SCH (06:28)
[2022-08-12] MEDS ORDERED: INSULIN SLIDING SCALE (NOVOLOG) 1 VIAL SQ SCH (08:10)
[2022-08-12 08:54] VITALS: BP 159/94; PULSE 95; TEMP 97.1
== END 2022-08-12 09:51 | disposition home or self-care (01) | DRG 773 ==
LOC: YASAS 12:57 → Y3N 17:23 → UNDOADMIN 17:23
PROVIDERS: ADMIT Allergy & Immunology; ATTEND Surgery
PROC: HZ2ZZZZ Detoxification Services for Substance Abuse Treatment (ICD-10-PCS; principal; 2022-08-03)
DX: F11.23 Opioid dependence with withdrawal (principal); F10.230 Alcohol dependence with withdrawal, uncomplicated; F17.210 Nicotine dependence, cigarettes, uncomplicated; F19.24 Other psychoactive substance dependence with psychoactive substance-induced mood disorder; F32.A Depression, unspecified; I10 Essential (primary) hypertension; E78.2 Mixed hyperlipidemia; E11.65 Type 2 diabetes mellitus with hyperglycemia; Z79.4 Long term (current) use of insulin; M47.9 Spondylosis, unspecified; E66.9 Obesity, unspecified; Z68.33 Body mass index [BMI] 33.0-33.9, adult; Z20.822 Contact with and (suspected) exposure to COVID-19; Z86.19 Personal history of other infectious and parasitic diseases
CPT/HCPCS: 36415; 71046-TC-FY; 80053; 82962; 85027; 86593; 86780; C9803-CS; U0003; U0005